=== PATIENT | male | born 1990 | race American Indian/Alaskan Native ===

== ENCOUNTER 2017-10-03 00:21 | Emergency (ER) | payer BC, OTHER ==
[2017-10-03] MEDS ORDERED: MOTRIN PO ONE (04:16)
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
[2017-10-03 04:26] VITALS: BP 116/61
== END 2017-10-03 04:25 | disposition home or self-care (01) ==
LOC: ED 00:21
DX: M54.9 Dorsalgia, unspecified (principal); M54.2 Cervicalgia; Z87.891 Personal history of nicotine dependence; V49.49XA Driver injured in collision with other motor vehicles in traffic accident, initial encounter; Y93.89 Activity, other specified; Y99.8 Other external cause status; Y92.410 Unspecified street and highway as the place of occurrence of the external cause
CPT/HCPCS: 99282